=== PATIENT | female | born 1995 | race Two or more races ===

== ENCOUNTER 2025-06-11 06:55 | Inpatient (IN) | payer MEDICAID, OTHER ==
[~2025-06-11] VITALS: Ht 175.3 cm; Wt 100.0 kg
--- NOTE | 2025-06-11 07:12 | ED.PDOC ---
GI ASSESSMENT HPI Comments 29 year old female presents to the ED via EMS with a chief complaint of abdominal pain onset last night. PMHx gallstones, colitis, anxiety. Patient states she began experiencing RUQ pain shortly after eating fried tacos for dinner. Patient moved to 4 months ago, was been followed up by a GI specialist, missed her appointment about 4 months ago. This morning, patient noticed dark tarry stool. Denies chest pain, dizziness, headache, fever, chills, shortness of breath, hematemesis, dysuria, hematuria. No other symptoms or modifying factors present at this time. Chief Complaint: Abdominal Pain Time Seen by MD: 07:00 Reviewed Notes: Medications, Allergies Allergies: Coded Allergies: Amoxicillin (Verified Allergy, Unknown, 06/11/25) Information Source: Patient, Emergency Med Personnel Mode of Arrival: EMS Timing: Hours Duration: Since onset Prehospital treatment: None Quality: Sharp Vomitus: None Stool: Tarry (dark) Severity: Moderate Recent Hx of: None Pain Location: RUQ Modifying Factors: Nothing Associated sign and symptoms: Abdominal Pain Past Medical History PAST MEDICAL HISTORY: Anxiety, Gallstones Past Medical History (Other): colitis Surgical History: Denies all surgeries BUSINESS ANALYST INTERN History: No Pertinent BUSINESS ANALYST INTERN History Family History Family History: Reviewed,noncontributory to illness, No family hx of Cancer, No family hx of DM, No family hx of Heart sudhir, No family hx of HTN, No family hx ofKidney sudhir, No family hx of Liver sudhir, No family hx of Lung sudhir, No family hx of Stroke Social History Smoker: Non-Smoker Alcohol: Denies ETOH Use Drugs: Denies Drug Use Lives In: Home Constitutional: denies: chills, diaphoresis, fatigue, fever, malaise, sweats, weakness, others EENTM: denies: blurred vision, double vision, ear bleeding, ear discharge, ear drainage, ear pain, ear ringing, eye pain, eye redness, hearing loss, mouth pain, mouth swelling, nasal discharge, nose bleeding, nose congestion, nose pain, photophobia, tearing, throat pain, throat swelling, voice changes, others Respiratory: denies: cough, hemoptysis, orthopnea, SOB at rest, shortness of breath, SOB with excertion, stridor, wheezing, others Cardiovascular: denies: chest pain, dizzy spells, diaphoresis, Dyspnea on exertion, edema, irregular heart beat, left arm pain, lightheadedness, palpitations, PND, syncope, others Gastrointestinal: reports: abdominal pain (RUQ), others (dark stool); denies: a bdomen distended, blood streaked bowels, constipated, diarrhea, dysphagia, difficulty swallowing, hematemesis, melena, nausea, poor appetite, poor fluid intake, rectal bleeding, rectal pain, vomiting Genitourinary: denies: abnormal vagina bleeding, burning, dyspareunia, dysuria, flank pain, frequency, hematuria, incontinence, pain, , vagina discharge, urgency, others Neurological: denies: dizziness, fainting, headache, left sided numbness, left sided weakness, numbness, paresthesia, pre-existing deficit, right sided numbness, right sided weakness, seizure, speech problems, tingling, tremors, weakness, others Musculoskeletal: denies: back pain, gout, joint pain, joint swelling, muscle p ain, muscle stiffness, neck pain, others Integumetry: denies: bruises, change in color, change in hair/nails, dryness, laceration, lesions, lumps, rash, wounds, others Allergic/Immunocompromised: denies: Difficulty Healing, Frequent Infections, Hives, Itching, others Hematologic/Lymphatic: denies: anemia, blood clots, easy bleeding, easy bruising, swollen glands, others Endocrine: denies: excessive hunger, excessive sweating, excessive thirst, excessive urination, flushing, intolerance to cold, intolerance to heat, unexplained weight gain, unexplained weight loss, others Psychiatric: denies: anxiety, bipolar disorder, depression, hopeless, panic disorder, schizophrenia, sleepless, suicidal, others All Other Systems: Reviewed and Negative Physical Exam General Appearance: Moderate Distress, Normal HEENT: Normal ENT Inspection, Pharynx Normal, TMs Normal Neck: Full Range of Motion, Non-Tender, Normal, Normal Inspection Respiratory: Chest Non-Tender, Lungs Clear, No Accessory Muscle Use, No Respiratory Distress, Normal Breath Sounds Cardiovascular: No Edema, No JVD, No Murmur, No Gallop, Normal Peripheral Pulses, Regular Rate/Rhythm Breast Exam: Deferred Gastrointestinal: No Organomegaly, Non Tender, No Pulsatile Mass, Normal Bowel Sounds, Soft Genitalia: Deferred Pelvic: Deferred Rectal: Deferred Extremities: No calf tenderness, Normal capillary refill, Normal inspection, Normal range of motion, Non-tender, No pedal edema Musculoskeletal : Apperance: Normal Neurologic: Alert, senior mechanical design engineer II-XII nml as Tested, No Motor Deficits, Normal Affect, Normal Mood, No Sensory Deficits Cerebellar Function: Normal Reflexes: Normal Skin: Dry, Normal Color, Warm Peripheral Pulses: 3+ Radial (R), 3+ Radial (L) Lymphatic: No Adenopathy Was a procedure done? Was a procedure done?: No GI differential Dx Differential Diagnosis: Constipation, Diverticular disease, Esophagitis, Gastritis/PUD, Gastroenteritis X-Ray, Labs, Meds, VS Vital Signs Date Time Temp Pulse Resp B/P (MAP) Pulse Ox O2 Delivery O2 Flow Rate FiO2 06/11/25 09:09 86 18 153/96 06/11/25 09:07 98.5 86 18 153/96 (115) 100 98.5 06/11/25 08:22 87 22 95 Room Air* 0 21 06/11/25 08:16 87 22 98 Room Air 06/11/25 08:16 87 22 157/87 06/11/25 08:16 97.9 87 22 157/96 (116) 98 97.9 06/11/25 06:57 98.2 86 17 132/82 96 98.2 Lab Test 06/11/25 08:05 06/11/25 07:29 Range/Units Urine Color Colorless Yellow Urine Clarity Turbid H Clear Urine pH 7.0 5.0-9.0 Urine Specific [place] 1.016 1.001-1.035 Urine Protein Negative Negative Urine Ketones Negative Negative Urine Blood Negative Negative /uL Urine Nitrite Negative Negative Urine Bilirubin Negative Negative Urine Urobilinogen Normal Negative mg/dL Urine Leukocyte Esterase Negative Negative /uL Urine RBC None seen 0 - 4 /hpf Urine Microscopic WBC 1 0-5 /HPF Urine Squamous Epithelial Cells Mod <5 /hpf Urine Bacteria None seen None Seen /hpf Urine Glucose Normal Normal mg/dL White Blood Count 10.1 4.4-10.8 10^3/uL Red Blood Count 4.87 4.0-5.20 10^6/uL Hemoglobin 14.6 12.2-16.2 g/dL Hematocrit 42.6 36.0-46.0 % Mean Corpuscular Volume 87.3 80.0-100.0 fL Mean Corpuscular Hemoglobin 29.9 28.0-32.0 pg Mean Corpuscular Hemoglobin Concent 34.2 32.0-36.0 g/dL Red Cell Distribution Width 14.2 11.8-14.3 % Platelet Count 271 140-450 10^3/uL Mean Platelet Volume 8.2 6.9-10.8 fL Neutrophils (%) (Auto) 71.0 37.0-80.0 % Lymphocytes (%) (Auto) 21.6 10.0-50.0 % Monocytes (%) (Auto) 6.3 0.0-12.0 % Eosinophils (%) (Auto) 0.7 0.0-7.0 % Basophils (%) (Auto) 0.4 0.0-2.0 % Neutrophils # (Auto) 7.2 1.6-8.6 10 ^3/uL Lymphocytes # (Auto) 2.2 0.4-5.4 10 ^3/uL Monocytes # (Auto) 0.6 0-1.3 10 ^3/uL Eosinophils # (Auto) 0.1 0-0.8 10 ^3/uL Basophils # (Auto) 0 0-0.2 10 ^3/uL Nucleated Red Blood Cells 0.0 % Sodium Level 138 136-145 mmol/L Potassium Level 4.1 3.5-5.1 mmol/L Chloride Level 108 H 98-107 mmol/L Carbon Dioxide Level 22 20-31 mmol/L Anion Gap 8 5-15 Blood Urea Nitrogen 12 9-23 mg/dL Creatinine 0.73 0.550-1.02 mg/dL Glomerular Filtration Rate Calc 113 >90 mL/min BUN/Creatinine Ratio 16.4 10.0-20.0 Serum Glucose 104 74-106 mg/dL Calcium Level 9.0 8.7-10.4 mg/dL Total Bilirubin 0.2 0.2-1.0 mg/dL Aspartate Amino Transferase (AST) 14 13-40 U/L Alanine Aminotransferase (ALT) 15 7-40 U/L Alkaline Phosphatase 86 46-116 U/L Total Protein 6.6 5.7-8.2 g/dL Albumin 4.3 3.2-4.8 g/dL Lipase 39 12-53 U/L Current Medications Medications (Trade) Dose Ordered Sig/Margaret Route Start Time Stop Time Status Last Admin Morphine Sulfate 4 mg ONCE ONCE IV 06/11/25 07:30 06/11/25 07:31 DC 06/11/25 08:16 Ondansetron HCl (Zofran) 4 mg ONCE ONCE IV 06/11/25 07:30 06/11/25 07:31 DC 06/11/25 08:15 Sodium Chloride 1,000 ml @ 1,000 mls/hr Q1H ONCE IV 06/11/25 07:30 06/11/25 08:29 DC 06/11/25 08:14 Lorazepam (Ativan Tablet) 1 mg ONCE ONCE PO 06/11/25 08:30 06/11/25 08:31 DC 06/11/25 08:37 Ketorolac Tromethamine (Toradol Injection) 30 mg ONCE ONCE IV 06/11/25 09:00 06/11/25 09:01 DC 06/11/25 09:12 Patient alert. Complaining of abdominal pain. Possible gallstone. Vitals stable. Answering all questions. Establish intravenous access. Was given fluids. Was given pain medication. Was given Zofran. Ultrasound does reveal acute cholecystitis. Liver profile within normal limits. Was given Rocephin. Was given Flagyl. Explained to the patient about fatty food. [place] [id number] Ph: [phone] DIAGNOSTIC IMAGING Diagnostic Imaging Report : [id number] Signed PATIENT: JUNIOR VILLACT: [id number] UNIT: [id number] : 1995 LOC: ER ROOM / BED: / AGE / SEX: 29 / F ADM STATUS: REG ER SERVICE 0717 ORDERING PHYSICIAN: MARTIN MONREAL MD PROCEDURE(s): GBUS - GALLBLADDER REASON: u ORDER NUMBER(s): [id number], ACCESSION NUMBER(s): [id number] CLINICAL INFORMATION: Right upper quadrant pain. TECHNIQUE: Grayscale sonographic imaging of the right upper quadrant of the abdomen was performed, assisted by color Doppler techniques. COMPARISON: None FINDINGS: The gallbladder wall measures 3 mm in thickness, at the upper limits of normal. There are shadowing gallstones in the gallbladder, with the largest measuring up to 3 cm. Positive reported sonographic Fenton's sign. The common bile duct measures 5 mm in diameter, within normal limits. The liver is enlarged, measuring up to 18.1 cm in craniocaudal dimension. Mildly increased echogenicity of the liver suggesting fatty infiltration. The pancreas is partly obscured, likely by bowel gas. The visualized portions appear normal. The right kidney measures 10.9 cm. There is no hydronephrosis. Right renal cortical echogenicity and cortical thickness are within normal limits. IMPRESSION: 1. Cholelithiasis with borderline gallbladder wall thickening and positive repor [place] sonographic fenton's Rasheed, may be seen with acute cholecystitis in the appropriate clinical setting. 2. Hepatomegaly and mild hepatic steatosis. ATED BY: KOBY JENKINS DO DICTATED DATE/TIME: 06/11/25754 SIGNED BY: KOBY JENKINS DO SIGNED DATE/TIME: 06/11/25754 CC: Time of 1ST Reevaluation: 07:30 Reevaluation 1ST: Unchanged Patient Education/Counseling: Diagnosis, Treatment, Prognosis Family Education/Counseling: No Family Present Additional Information The following tests were ordered, and results were reviewed by me: CBC, CMP, LIPASE, UA, US GALLBLADDER Additional Information was gathered from interviewing the following independent historians: EMS I reviewed and agreed with the following test results read by other providers:US GALLBLADDER I discussed treatment and results with medical personnel and: patient Comprehensive systems review obtained and negative except for what is stated in the HPI. SEPSIS Sepsis Screen Physician Orders Gallbladder (06/11/25 07:17) Vital Signs Date Time Temp Pulse Resp B/P (MAP) Pulse Ox O2 Delivery O2 Flow Rate FiO2 06/11/25 09:09 86 18 153/96 06/11/25 09:07 98.5 86 18 153/96 (115) 100 98.5 06/11/25 08:22 87 22 95 Room Air* 0 21 06/11/25 08:16 87 22 98 Room Air 06/11/25 08:16 87 22 157/87 06/11/25 08:16 97.9 87 22 157/96 (116) 98 97.9 06/11/25 06:57 98.2 86 17 132/82 96 98.2 Laboratory Tests Test 06/11/25 07:29 White Blood Count 10.1 10^3/uL (4.4-10.8) Medications Medications Dose Ordered Sig/Margaret Route Start Time Stop Time Status Last Admin Dose Admin Ketorolac Tromethamine 30 mg ONCE ONCE IV 06/11/25 09:00 06/11/25 09:01 DC 06/11/25 09:12 Lorazepam 1 mg ONCE ONCE PO 06/11/25 08:30 06/11/25 08:31 DC 06/11/25 08:37 Morphine Sulfate 4 mg ONCE ONCE IV 06/11/25 07:30 06/11/25 07:31 DC 06/11/25 08:16 Ondansetron HCl 4 mg ONCE ONCE IV 06/11/25 07:30 06/11/25 07:31 DC 06/11/25 08:15 Sodium Chloride 1,000 ml @ 1,000 mls/hr Q1H ONCE IV 06/11/25 07:30 06/11/25 08:29 DC 06/11/25 08:14 Departure 1 Departure Time of Disposition: 07:33 Impression: Primary Impression: Acute cholecystitis Additional Impression: Gallstones Disposition: ADMITTED INPATIENT Admit to: Med Surg Condition: Guarded Critical Care Note Critical Care Time?: No Stability Stability form required: No Heart Score Heart Score: Heart Score Response (Comments) Value History N/A 0 EKG N/A 0 Age N/A 0 Risk Factors N/A 0 Troponin N/A 0 Total 0 I personally scribed for MARTIN MONREAL MD ([email or web address]) on 06/11/25 at 07:12. Electronically submitted by Alea Zaman ([email or web address]). I personally scribed for MARTIN MONREAL MD ([email or web address]) on 06/11/25 at 07:19. Electronically submitted by Alea Zaman ([email or web address]). I personally scribed for MARTIN MONREAL MD ([email or web address]) on 06/11/25 at 09:30. Electronically submitted by Alea Zaman ([email or web address]). MARTIN MONREAL MD Jun 11, 2025 07:12
--- NOTE | 2025-06-11 07:57 | DVH ---
CLINICAL INFORMATION: Right upper quadrant pain. TECHNIQUE: Grayscale sonographic imaging of the right upper quadrant of the abdomen was performed, a ssisted by color Doppler techniques. COMPARISON: None FINDINGS: The gallbladder wall measures 3 mm in thickness, at the upper limits of normal. There ar e shadowing gallstones in the gallbladder, with the largest measuring up to 3 cm. Positive reported s onographic Fenton's sign. The common bile duct measures 5 mm in diameter, within normal limits. The liver is enlarged, measuring up to 18.1 cm in craniocaudal dimension. Mildly increased echogenici ty of the liver suggesting fatty infiltration. The pancreas is partly obscured, likely by bowel gas. The visualized portions appear normal. The right kidney measures 10.9 cm. There is no hydronephrosis. Right renal cortical echogenicity a nd cortical thickness are within normal limits. IMPRESSION: 1. Cholelithiasis with borderline gallbladder wall thickening and positive reported sonographic harley y's Rasheed, may be seen with acute cholecystitis in the appropriate clinical setting. 2. Hepatomegaly and mild hepatic steatosis.
[2025-06-11 08:00] LABS: Hematocrit 42.6 % (36.0-46.0); Hemoglobin 14.6 g/dL (12.2-16.2); Mean Corpuscular Hemoglobin 29.9 pg (28.0-32.0); Mean Corpuscular Volume 87.3 fL (80.0-100.0); Nucleated Red Blood Cells % 0.0 %
[2025-06-11 08:14] LABS: Alanine Aminotransferase 15 U/L (7-40); Albumin 4.3 g/dL (3.2-4.8); Alkaline Phosphatase 86 U/L (46-116); Anion Gap 8 (5-15); BUN/Creatinine Ratio 16.4 (10.0-20.0); Blood Urea Nitrogen 12 mg/dL (9-23); Calcium 9.0 mg/dL (8.7-10.4); Carbon Dioxide 22 mmol/L (20-31); Glucose 104 mg/dL (74-106); Potassium 4.1 mmol/L (3.5-5.1); Sodium 138 mmol/L (136-145); Total Protein 6.6 g/dL (5.7-8.2)
[2025-06-11] MEDS: SODIUM CHLORIDE 0.9% 1,000 ML IV ONE (08:14)
[2025-06-11] MEDS: ONDANSETRON HCL 4 MG/2 ML VIAL IV ONE (08:15)
[2025-06-11 08:16] LABS: Bilirubin, Total 0.2 mg/dL (0.2-1.0); Chloride 108 mmol/L (98-107)
[2025-06-11] MEDS: MORPHINE SULFATE 4 MG/ML SYR/VIAL IV ONE (08:16)
[2025-06-11 08:22] VITALS: PULSE 87; RESP 22; O2SAT 95
[2025-06-11 08:25] LABS: Lipase 39 U/L (12-53)
[2025-06-11] MEDS: LORazepam 0.5 MG TAB PO ONE (08:37)
[2025-06-11] MEDS: KETOROLAC TROMETH 30 MG/ML 1ML VIAL IV ONE (09:12)
[2025-06-11 09:18] LABS: Urine Protein, UAD Negative (Negative)
[2025-06-11] MEDS: cefTRIAXone 1GM/50ML D5W 50 ML IV ONE (11:46)
[2025-06-11 15:26] VITALS: BP 111/64; PULSE 74; RESP 18; TEMP 97.6; O2SAT 99
[2025-06-11] MEDS ORDERED: MORPHINE SULFATE INJ 2 MG/ml SYRG IV PRN (16:30)
[2025-06-11] MEDS ORDERED: KETOROLAC TROMETH 30 MG/ML 1ML VIAL IV PRN ×2 (16:30→16:45)
[2025-06-11] MEDS ORDERED: ONDANSETRON HCL 4 MG/2 ML VIAL IV PRN (16:30)
[2025-06-11] MEDS ORDERED: SODIUM CHLORIDE 0.9% 1,000 ML IV SCH (16:30)
[2025-06-11] MEDS ORDERED: NITROGLYCERIN 0.4 MG SL TAB SL PRN (16:30)
[2025-06-11 17:19] LABS: Triglycerides 85 mg/dL (< 150)
[2025-06-11 17:21] LABS: Cholesterol 143 mg/dL (< 200); HDL Cholesterol 45 mg/dL (40-59)
--- NOTE | 2025-06-11 17:53 | DVHHPRES ---
History of Present Illness Resident Creating Document: TRUMAN MARQUES RESIDENT History of Present Illness This is a 29-year-old obese female with past medical history of gallstone came to the hospital due to abdominal pain. Per patient she has on and off abdominal pain and was diagnosed with gallstone 2 years back. Since yesterday, the pain has worsened. Pain is localized at right upper quadrant, radiating to the back, constant, worsened by taking food, with no clear relieving factor. She also reports of nausea, and diarrhea. She denies fever, chest pain, shortness of breath, dysuria or any recent sick contact. PMHx: Gallstone PSHx: Not significant Social history: Current smoker, drinks socially, denies any other drug use Home medication: Take no medication Allergic history: Amoxicillin Patient seen and examined at the bedside. Patient is still complaining of abdominal pain. Review of Systems Allergies: Coded Allergies: Amoxicillin (Verified Allergy, Unknown, 06/11/25) Medications Current Medications Medications Dose Ordered Sig/Margaret Route Start Time Stop Time Status Last Admin Dose Admin Sodium Chloride 1,000 ml @ 120 mls/hr Q8H20M IV 06/11/25 16:30 Ondansetron HCl 4 mg Q4HP PRN IV 06/11/25 16:30 Ceftriaxone Sodium 50 ml @ 100 mls/hr DAILY@09 IV 06/12/25 09:00 Metronidazole 100 ml @ 100 mls/hr Q8HR IV 06/11/25 22:00 Ketorolac Tromethamine 15 mg Q6HPRN PRN IV 06/11/25 16:45 06/16/25 16:29 Famotidine 20 mg DAILY IV 06/12/25 10:00 Exam Vital Signs Vital Signs Date Time Temp Pulse Resp B/P (MAP) Pulse Ox O2 Delivery O2 Flow Rate FiO2 06/11/25 15:26 97.6 74 18 111/64 (80) 99 97.6 06/11/25 08:22 Room Air* 0 21 Exam General Appearance: Alert, Oriented X3, Cooperative, No acute distress HEENT: Atraumatic, PERRLA, EOMI, Mucous membrane moist/pink Respiratory: Clear to auscultation, Normal air movement Cardiovascular: Regular rate, Normal S1, Normal S2, No murmurs, no chest wall tenderness Abdominal: Right upper quadrant tenderness, negative Fenton sign Extremities: No clubbing, No cyanosis, No edema, Normal pulses, No tenderness/swelling Skin: No rashes, No breakdown, No significant lesion Neuro: Normal gait, Normal speech, Strength at 5/5 X4 ext, Normal tone, Sensation intact, Cranial nerves 3-12 NL, Reflexes 2+ Psych/Mental Status: Mental status NL, Mood NL Labs/Xrays Labs Test 06/11/25 08:05 06/11/25 07:29 Range/Units Urine Color Colorless Yellow Urine Clarity Turbid H Clear Urine pH 7.0 5.0-9.0 Urine Specific [place] 1.016 1.001-1.035 Urine Protein Negative Negative Urine Ketones Negative Negative Urine Blood Negative Negative /uL Urine Nitrite Negative Negative Urine Bilirubin Negative Negative Urine Urobilinogen Normal Negative mg/dL Urine Leukocyte Esterase Negative Negative /uL Urine RBC None seen 0 - 4 /hpf Urine Microscopic WBC 1 0-5 /HPF Urine Squamous Epithelial Cells Mod <5 /hpf Urine Bacteria None seen None Seen /hpf Urine Glucose Normal Normal mg/dL White Blood Count 10.1 4.4-10.8 10^3/uL Red Blood Count 4.87 4.0-5.20 10^6/uL Hemoglobin 14.6 12.2-16.2 g/dL Hematocrit 42.6 36.0-46.0 % Mean Corpuscular Volume 87.3 80.0-100.0 fL Mean Corpuscular Hemoglobin 29.9 28.0-32.0 pg Mean Corpuscular Hemoglobin Concent 34.2 32.0-36.0 g/dL Red Cell Distribution Width 14.2 11.8-14.3 % Platelet Count 271 140-450 10^3/uL Mean Platelet Volume 8.2 6.9-10.8 fL Neutrophils (%) (Auto) 71.0 37.0-80.0 % Lymphocytes (%) (Auto) 21.6 10.0-50.0 % Monocytes (%) (Auto) 6.3 0.0-12.0 % Eosinophils (%) (Auto) 0.7 0.0-7.0 % Basophils (%) (Auto) 0.4 0.0-2.0 % Neutrophils # (Auto) 7.2 1.6-8.6 10 ^3/uL Lymphocytes # (Auto) 2.2 0.4-5.4 10 ^3/uL Monocytes # (Auto) 0.6 0-1.3 10 ^3/uL Eosinophils # (Auto) 0.1 0-0.8 10 ^3/uL Basophils # (Auto) 0 0-0.2 10 ^3/uL Nucleated Red Blood Cells 0.0 % Sodium Level 138 136-145 mmol/L Potassium Level 4.1 3.5-5.1 mmol/L Chloride Level 108 H 98-107 mmol/L Carbon Dioxide Level 22 20-31 mmol/L Anion Gap 8 5-15 Blood Urea Nitrogen 12 9-23 mg/dL Creatinine 0.73 0.550-1.02 mg/dL Glomerular Filtration Rate Calc 113 >90 mL/min BUN/Creatinine Ratio 16.4 10.0-20.0 Serum Glucose 104 74-106 mg/dL Hemoglobin A1c 5.4 <5.7 % A1C Calcium Level 9.0 8.7-10.4 mg/dL Total Bilirubin 0.2 0.2-1.0 mg/dL Aspartate Amino Transferase (AST) 14 13-40 U/L Alanine Aminotransferase (ALT) 15 7-40 U/L Alkaline Phosphatase 86 46-116 U/L Total Protein 6.6 5.7-8.2 g/dL Albumin 4.3 3.2-4.8 g/dL Triglycerides Level 85 < 150 mg/dL Cholesterol Level 143 < 200 mg/dL LDL Cholesterol 103 H < 100 mg/dL HDL Cholesterol 45 40-59 mg/dL Lipase 39 12-53 U/L Thyroid Stimulating Hormone (TSH) 0.96 0.55-4.78 uIU/mL SEPSIS Sepsis Screen Date sepsis recognized/suspect: Jun 11, 2025 Time Sepsis recognized/suspect: 0653 Recent Procedure: No On Antibiotic Therapy: No Respiratory Rate >20: No Heart Rate >90: No Temp<36 C (96.8 F) or >38.3 C: No SBP <90 or MAP <65 mmHG: No New Acute Mental Status Change: No Is the patient on CPAP, BIPAP,: No Physician Orders Admit (06/11/25 16:16) Allergies (06/11/25 16:16) Code Status (06/11/25 16:16) Sodium Chloride 0.9% (06/11/25 16:30) Ondansetron Hcl (Zofran) (06/11/25 16:30) Npo (Nothing By Mouth) Diet (06/11/25 Dinner) Ceftriaxone 1gm/50ml D5w (Rocephin) (06/12/25 09:00) Metronidazole 500mg/100ml (Flagyl 500mg/ (06/11/25 22:00) Sequential Compression Device (06/11/25 16:23) Test, Urine (06/11/25 16:23) * Surgical Consult (06/11/25 16:37) Ketorolac Injection (Toradol Injection) (06/11/25 16:45) Famotidine Injection (Pepcid Injection) (06/12/25 10:00) Drug Screen (06/11/25 16:39) Electrocardigram (06/11/25 16:39) Nm Hida Scan (06/11/25 16:39) Comprehensive Metabolic Panel (06/12/25 04:00) Complete Blood Count (06/12/25 04:00) Vital Signs Date Time Temp Pulse Resp B/P (MAP) Pulse Ox O2 Delivery O2 Flow Rate FiO2 06/11/25 15:26 97.6 74 18 111/64 (80) 99 97.6 06/11/25 13:38 98.2 99 18 116/63 (80) 99 98.2 06/11/25 11:14 98.4 97 20 128/76 (93) 99 98.4 Laboratory Tests Test 06/11/25 07:29 White Blood Count 10.1 10^3/uL (4.4-10.8) Medications Medications Dose Ordered Sig/Margaret Route Start Time Stop Time Status Last Admin Dose Admin Ceftriaxone Sodium 50 ml @ 100 mls/hr ONCE ONCE IV 06/11/25 10:45 06/11/25 11:14 DC 06/11/25 11:46 100 MLS/HR Ketorolac Tromethamine 30 mg ONCE ONCE IV 06/11/25 09:00 06/11/25 09:01 DC 06/11/25 09:12 30 MG Lorazepam 1 mg ONCE ONCE PO 06/11/25 08:30 06/11/25 08:31 DC 06/11/25 08:37 1 MG Metronidazole 100 ml @ 100 mls/hr ONCE ONCE IV 06/11/25 10:45 06/11/25 11:44 DC 06/11/25 11:49 100 MLS/HR Morphine Sulfate 4 mg ONCE ONCE IV 06/11/25 07:30 06/11/25 07:31 DC 06/11/25 08:16 4 MG Ondansetron HCl 4 mg ONCE ONCE IV 06/11/25 07:30 06/11/25 07:31 DC 06/11/25 08:15 4 MG Sodium Chloride 1,000 ml @ 1,000 mls/hr Q1H ONCE IV 06/11/25 07:30 06/11/25 08:29 DC 06/11/25 08:14 1,000 MLS/HR Assessment/Plan Assessment/Plan Acute abdominal pain, likely due to cholecystitis Cholelithiasis Possible cholecystitis Obesity * Ultrasound shows cholelithiasis with gallbladder wall thickening, positive ultrasound Fenton sign Plan/recommendation * IV ketorolac * Empiric antibiotic Rocephin and metronidazole * IV fluid * Consulted surgery * HIDA scan DIET: NPO GI PROPHYLAXIS:: Protonix BOWEL REGIMEN: Colace CODE STATUS: Goal of care discussed for more than 18 minutes, full code DISPOSITION: Med/surge Patient's status and plan discussed with the patient. Case discussed with Dr. Huff. Plan discussed with: Patient, Other (RN) My Orders Orders - TRUMAN MARQUES Procedure Category Date Status Time Admit ADMIT 06/11/25 Transmitted 16:16 Allergies SHARON 06/11/25 In Process 16:16 Code Status CODE 06/11/25 Transmitted 16:16 Sodium Chloride 0.9% PHA 06/11/25 In Process 16:30 Ondansetron Hcl PHA 06/11/25 In Process (Zofran) 16:30 Npo (Nothing By DIET 06/11/25 Transmitted Mouth) Diet Dinner Ceftriaxone 1gm/50ml PHA 06/12/25 In Process D5w (Rocephin) 09:00 Metronidazole PHA 06/11/25 In Process 500mg/100ml (Flagyl 22:00 Sequential SHARON 06/11/25 In Process Compression Device 16:23 Test, Urine LAB 06/11/25 Logged 16:23 Date of Service: Jun 11, 2025 Billing Provider: JAN HUFF MD Common Visit Codes: [id number] INP/OBS CARE (HIGH) TRUMAN MARQUES Jun 11, 2025 17:52 JAN HUFF MD Jun 13, 2025 21:13
--- NOTE | 2025-06-11 17:53 | DVHDSRES ---
Discharge Summary Date of Admission Resident Creating Document: TRUMAN MARQUES RESIDENT Jun 11, 2025 at 16:16 Date of Discharge: Jun 11, 2025 Labs/Diagnostic Data: Laboratory Results Test 06/11/25 08:05 06/11/25 07:29 Urine Color Colorless (Yellow) Urine Clarity Turbid (Clear) Urine pH 7.0 (5.0-9.0) Urine Specific [place] 1.016 (1.001-1.035) Urine Protein Negative (Negative) Urine Ketones Negative (Negative) Urine Blood Negative /uL (Negative) Urine Nitrite Negative (Negative) Urine Bilirubin Negative (Negative) Urine Urobilinogen Normal mg/dL (Negative) Urine Leukocyte Esterase Negative /uL (Negative) Urine RBC None seen /hpf (0 - 4) Urine Microscopic WBC 1 /HPF (0-5) Urine Squamous Epithelial Cells Mod /hpf (<5) Urine Bacteria None seen /hpf (None Seen) Urine Glucose Normal mg/dL (Normal) White Blood Count 10.1 10^3/uL (4.4-10.8) Red Blood Count 4.87 10^6/uL (4.0-5.20) Hemoglobin 14.6 g/dL (12.2-16.2) Hematocrit 42.6 % (36.0-46.0) Mean Corpuscular Volume 87.3 fL (80.0-100.0) Mean Corpuscular Hemoglobin 29.9 pg (28.0-32.0) Mean Corpuscular Hemoglobin Concent 34.2 g/dL (32.0-36.0) Red Cell Distribution Width 14.2 % (11.8-14.3) Platelet Count 271 10^3/uL (140-450) Mean Platelet Volume 8.2 fL (6.9-10.8) Neutrophils (%) (Auto) 71.0 % (37.0-80.0) Lymphocytes (%) (Auto) 21.6 % (10.0-50.0) Monocytes (%) (Auto) 6.3 % (0.0-12.0) Eosinophils (%) (Auto) 0.7 % (0.0-7.0) Basophils (%) (Auto) 0.4 % (0.0-2.0) Neutrophils # (Auto) 7.2 10 ^3/uL (1.6-8.6) Lymphocytes # (Auto) 2.2 10 ^3/uL (0.4-5.4) Monocytes # (Auto) 0.6 10 ^3/uL (0-1.3) Eosinophils # (Auto) 0.1 10 ^3/uL (0-0.8) Basophils # (Auto) 0 10 ^3/uL (0-0.2) Nucleated Red Blood Cells 0.0 % Sodium Level 138 mmol/L (136-145) Potassium Level 4.1 mmol/L (3.5-5.1) Chloride Level 108 mmol/L (98-107) Carbon Dioxide Level 22 mmol/L (20-31) Anion Gap 8 (5-15) Blood Urea Nitrogen 12 mg/dL (9-23) Creatinine 0.73 mg/dL (0.550-1.02) Glomerular Filtration Rate Calc 113 mL/min (>90) BUN/Creatinine Ratio 16.4 (10.0-20.0) Serum Glucose 104 mg/dL (74-106) Hemoglobin A1c 5.4 % A1C (<5.7) Calcium Level 9.0 mg/dL (8.7-10.4) Total Bilirubin 0.2 mg/dL (0.2-1.0) Aspartate Amino Transferase (AST) 14 U/L (13-40) Alanine Aminotransferase (ALT) 15 U/L (7-40) Alkaline Phosphatase 86 U/L (46-116) Total Protein 6.6 g/dL (5.7-8.2) Albumin 4.3 g/dL (3.2-4.8) Triglycerides Level 85 mg/dL (< 150) Cholesterol Level 143 mg/dL (< 200) LDL Cholesterol 103 mg/dL (< 100) HDL Cholesterol 45 mg/dL (40-59) Lipase 39 U/L (12-53) Thyroid Stimulating Hormone (TSH) 0.96 uIU/mL (0.55-4.78) Other Laboratory Tests 06/11/25 07:29 Brief Hx & Hospital Course: HISTORY OF PRESENT ILLNESS: This is a 29-year-old obese female with past medical history of gallstone came to the hospital due to abdominal pain. Per patient she has on and off abdominal pain and was diagnosed with gallstone 2 years back. Since yesterday, the pain has worsened. Pain is localized at right upper quadrant, radiating to the back, constant, worsened by taking food, with no clear relieving factor. She also reports of nausea, and diarrhea. She denies fever, chest pain, shortness of breath, dysuria or any recent sick contact. PMHx: Gallstone PSHx: Not significant Social history: Current smoker, drinks socially, denies any other drug use Home medication: Take no medication Allergic history: Amoxicillin HOSPITAL COURSE: Patient admitted on the line of acute cholecystitis, ultrasound performed showed cholelithiasis with gallbladder thickening. Patient was started on pain management, empiric antibiotic Rocephin and metronidazole. IV fluid and Pepcid. HIDA scan were ordered, surgery was consulted for possible cholecystectomy. Later on patient left AMA. DISCHARGE PLAN: Patient left AMA FINAL DIAGNOSIS: Acute abdominal pain, likely due to cholecystitis Cholelithiasis Possible cholecystitis Obesity Condition at Discharge: Undetermined Final Diagnosis/Problems List . Discharge Disposition: AMA Discharge Statement: "Patient was advised to return to the ER or call 911 if any headaches, dizziness, shortness of breath, chest pain, abdominal pain, bleeding, fevers, or worsening of medical condition. Patient was counseled about treatment plan, medications, possible side effects, patientverbalized understanding. All questions were answered to the best of my ability. This discharge took greater then 30 minutes in planning, reviewing documentation, counseling the patient, and discussing with other team members." ASSESSMENT ASSESSMENT Assessment Date of Service: Jun 11, 2025 Billing Provider: JAN HUFF MD Common Visit Codes: 37665-KDV/OBS DISCH DAY >30min TRUMAN MARQUES Jun 11, 2025 17:53 JAN HUFF MD Jun 13, 2025 21:14
[2025-06-11 21:01] LABS: Amphetamine Screen, Urine Neg (NEGATIVE); Cocaine Screen, Urine Pos (NEGATIVE)
[2025-06-11 21:03] LABS: Barbiturate Scree,Urine Neg (NEGATIVE); Benzodiazephine Screen, Urine Neg (NEGATIVE); Cannabinoid Screen, Urine Pos (NEGATIVE); Opiate Scree,Urine Neg (NEGATIVE); Phencyclidine Screen, Urine Neg (NEGATIVE)
[2025-06-12] MEDS ORDERED: cefTRIAXone 1GM/50ML D5W 50 ML IV SCH (09:00)
[2025-06-12] MEDS ORDERED: PANTOPRAZOLE 40 MG/10 ML VIAL INJ IV SCH (10:00)
[2025-06-12] MEDS ORDERED: FAMOTIDINE (10MG/ML) 2ML VL IV SCH (10:00)
== END 2025-06-11 16:34 | disposition left against medical advice (07) ==
LOC: EDBD 06:55 → ER 06:55 → OVERFLOW 16:16
PROVIDERS: ATTEND Emergency Medicine
DX: K80.00 Calculus of gallbladder with acute cholecystitis without obstruction (principal); K76.0 Fatty (change of) liver, not elsewhere classified; E66.9 Obesity, unspecified; Z68.32 Body mass index [BMI] 32.0-32.9, adult; F41.9 Anxiety disorder, unspecified; Z53.29 Procedure and treatment not carried out because of patient's decision for other reasons; Z88.1 Allergy status to other antibiotic agents
CPT/HCPCS: 36415; 76705; 80053; 80061; 80307; 81001; 81025; 83036; 83690; 84443; 85025; 96361; 96374; 96375; G0378; J1885; J2405; J3490